=== PATIENT | male | born 1980 | race Caucasian/White ===

== ENCOUNTER 2019-11-07 12:36 | Emergency (ER) | payer MEDICAID, OTHER ==
[~2019-11-07] VITALS: Ht 182.9 cm; Wt 85.8 kg
[2019-11-07 15:16] VITALS: BP 136/93
[2019-11-07] MEDS ORDERED: INHA1EAC52 PO (15:59)
[2019-11-07] MEDS ORDERED: ALBU8HFA PO (15:59)
== END 2019-11-07 16:35 | disposition home or self-care (01) ==
LOC: ER 12:36
DX: J45.42 Moderate persistent asthma with status asthmaticus (principal); R06.02 Shortness of breath; R42 Dizziness and giddiness; R07.9 Chest pain, unspecified; F17.200 Nicotine dependence, unspecified, uncomplicated; Z79.899 Other long term (current) drug therapy
CPT/HCPCS: 71045; 93005; 99283

== ENCOUNTER 2021-06-05 12:44 | Emergency (ER) | payer MEDICAID ==
[~2021-06-05] VITALS: Ht 188 cm; Wt 77.2 kg
[~2021-06-05 12:44] MED LIST: INHA1EAC52 PO
[2021-06-05 13:10] VITALS: BP 140/96
[2021-06-05] MEDS ORDERED: ALBU8HFA PO (14:17)
[2021-06-05] MEDS ORDERED: ACET-1025 PO (14:17)
== END 2021-06-05 14:27 | disposition home or self-care (01) ==
LOC: ER 12:45
DX: U07.1 COVID-19 (principal); R07.89 Other chest pain; R09.89 Other specified symptoms and signs involving the circulatory and respiratory systems; J44.9 Chronic obstructive pulmonary disease, unspecified; F17.200 Nicotine dependence, unspecified, uncomplicated; Z79.899 Other long term (current) drug therapy
CPT/HCPCS: 71045; 93005; 99283